=== PATIENT | male | born 1975 | race Two or more races ===

== ENCOUNTER 2024-11-17 14:57 | Outpatient (REF) | payer MEDICAID, SELFPAY ==
--- OUTSIDE RECORDS SUMMARY | 2024-11-17 16:56 | XMS_ITS | Encounter Summary ---
Author Organization [employer] Address 75 [facility] 7t [place] [address] Care Team Providers Care Layer Out Plate Glass Name Role Phone Royce Juárez MD Primary Care Provider [phone] Reason for Visit * Reason Comments Med Refill Encounter Details Date Type Department Care Team ([facility] st Contact Info) Description 12/02/2023 Refill [facility] MED & PEDS [address] [place], [place] [id number] Royce Juárez MD [address] [place] [address] Gastroesophageal reflux disease without esophagitis Social History Tobacco Use Types Packs/Day Years Used Date Smoking Tobacco: Every Day Cigarettes 1 20 Smokeless Tobacco: Never Housing Stability Answer Date Recorded What is your housing situation today? I have foreignluisana smart 05/18/[address] you li ve. Do you have problems with any of the following? None of the above 05/18/2023 Food Insecurity Answer Date Recorded Within the past 12 months, y ou worried that your food would run out before you got money to buy more: Never True 05/18/2023 Within the past 12 months,th e food you bought just didn't last and you didn't have enough money to get more: Never True Transportation Answer Date Recorded In the past 12 months, has l ack of transportation kept you from medical appts, meetings, work or from getting things needed for daily living? No 05/18/2023 Utilities Answer Date Recorded In the past 12 months, has t he electric, gas, oil or water company threatened to shut off services in your home? No 05/18/2023 Sex and Gender Information Value Date Recorded Sex Assigned at Male 05/19/2022 10:15 AM EDT Legal Sex Male 10:15 AM EDT Gender Identity Male 05/19/2022 10:15 AM EDT Sexual Orientation Straight 05/19/2022 10 :15 AM EDT documented as of this encounter Plan of Treatment Not on file documented as of this encounter Visit Diagnoses Diagnosis Gastroesophageal reflux disease without esophagitis Esophageal reflux documented in this encounter Care Teams Layer Out Plate Glass Relationship Specialty Start Date End Date Royce Juárez MD [address] [place] [address] PCP - General Internal Medicine 09/28/19 documented as of this encounter
--- OUTSIDE RECORDS SUMMARY | 2024-11-17 16:56 | XMS_ITS | Clinical Summary ---
Author Organization [facility] Address [address] [place] [address] Care Team Providers Care Furnace Tapper Name Role Phone Josué Patel MD Primary Care Provider [phone] Source Comments PLEASE NOTE, if this patient is a minor, it may be UNLAWFUL to discuss sensitive information that is contained in these records (such as FAMILY PLANNING, MENTAL HEALTH or SUBSTANCE ABUSE) with the minor patient's parent or other person without the patient's specific authorization.[facility] Allergies No known active allergies Medications benztropine (COGENTIN) 1 mg tablet 3 5 Active FLUoxetine (PROZAC) 20 mg capsule 3 5 Active haloperidol (HALDOL) 10 mg tablet 3 5 Active vitamin e 400 unit capsule 3 5 Active ziprasidone (GEODON) 80 mg capsule 3 5 Active haloperidol (HALDOL) 10 mg tabletIndication s:Schizophrenia, unspecified type ([facility]) 1/2 tab prn use- per psych 1 Tab 0 6 Active simvastatin (ZOCOR) 10 mg tablet TAKE 1 TABLET BY MOUTH EVERY NIGHT AT BEDTIME 30 Tab 7 Active methylPREDNIsolo ne (MEDROL DOSPACK) 4 mg tablet packIndications: Body rash Follow package directions. 1 Packet 8 Active diphenhydrAMINE (BENADRYL) 25 mg capsuleIndicatio ns:Body rash Take 1 Cap by mouth every 6 (six) hours as needed for itching 30 Cap 1 8 Active triamcinolone acetonide (KENALOG) 0.1 % ointmentIndicati ons:Body rash Apply topically 2 (two) times daily 30 g 2 8 Active omeprazole (PRILOSEC) [address] capsuleIndicatio ns:Gastroesophag eal reflux disease, esophagitis presence not specified Take 1 Cap by mouth every morning before breakfast 30 Cap 8 Active Active Problems Problem Noted Date Diagnosed Date Gastroesophageal reflux disease 03/04/2017 Tobacco abuse 10/17/2014 Hypercholesterolemia 03/07/2014 Schizophrenia ([facility]) 03/07/2014 Overview (03/07/2014): Sees mental health for the medication. On shira vitale geodon H/O colonoscopy with polypectomy 03/07/2014 Overview (03/07/2014): Done January 09 2011Milton Brown MD Immunizations Immunization Administration Dates Next Due Flu, Preservative Free 06/04/2017 TDAP 06/04/2017 Family History Medical History Relation Name Comments Diabetes Father Hypertension Mother Diabetes Sister Relation Name Status Comments Father Alive Mother Alive Sister Alive Social History Tobacco Use Types Packs/Day Years Used Date Smoking Tobacco: Every Day Smokeless Tobacco: Never Chew Tobacco Cessation:Ready to Q uit: No; Counseling Given: Yes Alcohol Use Standard Drinks/Week Comments No 0 (1 standard drink = 0.6 oz pur e alcohol) Social Connections Answer Date Recorded Social Connections and Isolation 0 03/12/2019 Financial Resource Strain Answer Date R ecorded Financial Resource Strain 0 2018 Stress Answer Date Recorded Stress 0 03/12/2019 Physical Activity Answer Date Recorded Physical Activity 0 03/12/2019 Food Insecurity Answer Date Recorded Food 0 03/12/2019 Transportation Needs Answer Date Record ed Transportation 0 03/12/2019 Housing Stability Answer Date Recorded Housing 0 03/12/2019 Safety and Environment Answer Date Jose rded Safety 0 03/12/2019 Utilities Answer Date Recorded Utilities 0 03/12/2019 Employment Answer Date Recorded Employment 0 03/12/2019 Sex and Gender Information Value Date Recorded Sex Assigned at Male 06/04/2017 1:08 PM PST Legal Sex Male 11:36 AM PDT Gender Identity Male 06/04/2017 1:08 PM PST Sexual Orientation Straight 06/04/2017 1: 08 PM PST Last Filed Vital Signs Vital Sign Reading Time Taken Comments Blood Pressure 120/90 10/02/2017 1:46 PM EDT Pulse 64 10/02/2017 1:46 PM EDT Temperature 37.1 ??C (98.8 ??F) 10/02/2017 1:46 PM ED T Respiratory Rate 14 10/02/2017 1:46 PM EDT Oxygen Saturation 99% 09/27/2015 11:49 AM EST Inhaled Oxygen Concentration - - Weight 84.4 kg (186 lb) 10/02/2017 1:46 PM EDT Height 175.3 cm (5' 9 ) 10/02/2017 1:46 PM EDT Body Mass Index 27.47 10/02/2017 1:46 PM EDT Plan of Treatment Not on file Insurance [place] Member Subscriber Plan / Payer ( fective 2019-Present) Name:Medina Coleman Relation to Subscriber:Self Name:Medina Coleman Payer ID:[id number] Group ID:Not on file Type:Medicaid Address: [place] [id number] [facility] Care Teams Furnace Tapper Relationship Specialty Start Date End Date Josué Patel MD [address] [place] [id number] PCP - General Internal Medicine 02/09/18
--- OUTSIDE RECORDS SUMMARY | 2024-11-17 16:56 | XMS_ITS | Encounter Summary ---
Author Organization [employer] Address 75 [facility] 7t [place] [address] Care Team Providers Care Bight Maker Name Role Phone Royce Juárez MD Primary Care Provider [phone] Reason for Visit * Reason Onset Date Comments Medication Question 11/17/2024 Encounter Details Date Type Department Care Team ([facility] st Contact Info) Description 11/17/2024 Telephone [facility] MEDICINE [address] [place] [address] Royce Juárez MD [address] [place] [address] Medication Question Social History Tobacco Use Types Packs/Day Years Used Date Smoking Tobacco: Every Day Cigarettes 1 20 Smokeless Tobacco: Never Depression Answer Date Recorded Patient Health Questionnaire-9 Score 3 11/17/2024 Patient Health Questionnaire-9 Score 3 11/17/2024 Last PHQ-9: Questionnaire Data Not on file 0 11/17/2024 Housing Stability Answer Date Recorded What is your housing situation today? I have foreign smart 11/17/[address] you li ve. Do you have problems with any of the following? None of the above 11/17/2024 Food Insecurity Answer Date Recorded Within the past 12 months, y ou worried that your food would run out before you got money to buy more: Never True 2024 Within the past 12 months,th e food you bought just didn't last and you didn't have enough money to get more: Sometimes True 11/17/2024 Transportation Answer Date Recorded In the past 12 months, has l ack of transportation kept you from medical appts, meetings, work or from getting things needed for daily living? No 11/17/2024 Utilities Answer Date Recorded In the past 12 months, has t he electric, gas, oil or water company threatened to shut off services in your home? No 11/17/2024 Depression Answer Date Recorded Patient Health Questionnaire-2 Score 1 11/17/2024 Internet Access Answer Date Recorded Internet Access Q1 No 11/17/2024 Internet Access Q2 I cannot afford it 11/17/2024 Sex and Gender Information Value Date Recorded Sex Assigned at Male 05/19/2022 10:15 AM EDT Legal Sex Male 10:15 AM EDT Gender Identity Male 05/19/2022 10:15 AM EDT Sexual Orientation Straight 05/19/2022 10 :15 AM EDT documented as of this encounter Miscellaneous Notes * Telephone Encounter - Kimmie Moore - 11/17/2024 3:14 PM EDT Tc from [facility] with Mani'elida to clarify haloperidol (Haldol) 10 MG tablet directions. [phone] documented in this encounter Plan of Treatment Not on file documented as of this encounter Visit Diagnoses Not on filedocumented in this encounter Additional Health Concerns Assessment Noted Time PHQ-9 Depression Total Score: 3 11/18/19 25 3:06 PM EDT documented as of this encounter Care Teams Bight Maker Relationship Specialty Start Date End Date Royce Juárez MD [address] [place] [id number] PCP - General Internal Medicine 09/28/19 documented as of this encounter
--- OUTSIDE RECORDS SUMMARY | 2024-11-17 16:56 | XMS_ITS | Encounter Summary ---
Author Organization [employer] Address 75 [facility] 7t [place] [address] Care Team Providers Care Rail Express Clerk Name Role Phone Royce Juárez MD Primary Care Provider [phone] Reason for Visit * Reason Onset Date Comments Change PCP 05/26/2024 Encounter Details Date Type Department Care Team ([facility] st Contact Info) Description 05/26/2024 Telephone [facility] MEDICINE [address] [place] [address] Royce Juárez MD [address] [place] [address] Change PCP Social History Tobacco Use Types Packs/Day Years Used Date Smoking Tobacco: Every Day Cigarettes 1 20 Smokeless Tobacco: Never Housing Stability Answer Date Recorded What is your housing situation today? I have foreign smart 05/18/[address] you [...] encounter Miscellaneous Notes * Telephone Encounter - Charles Vasquez - 05/26/2024 11:20 AM EST Tc from [facility] stating pt is requesting to change to a korean speaking provider. Skylar stated due to pt's mental disorders it is a huge trigger for him needing an paginator during visits. Please contact Skylar at [phone]. documented in this encounter Plan of Treatment Not on file documented as of this encounter Visit Diagnoses Not on filedocumented in this encounter Care Teams Rail Express Clerk Relationship Specialty Start Date End Date Royce Juárez MD [address] [place] [address] PCP - General Internal Medicine 09/28/19 documented as of this encounter
--- OUTSIDE RECORDS SUMMARY | 2024-11-17 16:56 | XMS_ITS | Encounter Summary ---
Author Organization [employer] Address 75 [facility] 7 [place] [address] Care Team Providers Care Funeral Limousine Driver Name Role Phone Rocye Juárez MD Primary Care Provider [phone] Reason for Visit * Reason Comments Med Refill Encounter Details Date Type Department Care Team ([facility] st Contact Info) Description 08/06/2022 Refill [facility] CHC MED & PEDS [address] [place] [address] Royce Juárez MD [address] [place] [address] Gastroesophageal reflux disease without esophagitis Social History Tobacco Use Types Packs/Day Years Used Date Smoking Tobacco: Every Day Cigarettes 1 20 Smokeless Tobacco: Never Sex and Gender Information Value Date Recorded Sex Assigned at Male 05/19/2022 10:15 AM EDT Legal Sex Male 10:15 AM EDT Gender Identity Male 05/19/2022 10:15 AM EDT Sexual Orientation Straight 05/19/2022 10 :15 AM EDT COVID-19 Exposure Response Date Recorded In the last 10 days, have yo u been in contact with someone who was confirmed or suspected to have Coronavirus/COVID-19? No / Unsure 08/06/2022 10:19 AM EST documented as of this encounter Plan of Treatment Not on file documented as of this encounter Visit Diagnoses Diagnosis Gastroesophageal reflux disease without esophagitis Esophageal reflux documented in this encounter Care Teams Funeral Limousine Driver Relationship Specialty Start Date End Date Royce Juárez MD [address] [place] [address] PCP - General Internal Medicine 09/28/19 documented as of this encounter
--- OUTSIDE RECORDS SUMMARY | 2024-11-17 16:56 | XMS_ITS | Encounter Summary ---
Author Organization [employer] Address 75 [facility] 7t [place] [address] Care Team Providers Care Evaluation Specialist Name Role Phone Royce Juárez MD Primary Care Provider [phone] Encounter Details Date Type Department Care Team (Latest Contact Info) Description 11/17/2024 Travel Social History Tobacco Use Types Packs/Day Years [...] documented as of this encounter Care Teams Evaluation Specialist Relationship Specialty Start Date End Date Royce Juárez MD [address] [place] [address] PCP - General Internal Medicine 09/28/19 documented as of this encounter
--- OUTSIDE RECORDS SUMMARY | 2024-11-17 16:56 | XMS_ITS | Encounter Summary ---
Author Organization [employer] Address 75 [facility] 7t [place] [address] Care Team Providers Care Rough Patcher Name Role Phone Royce Juárez MD Primary Care Provider [phone] Reason for Visit * Reason Comments Med Refill Encounter Details Date Type Department Care Team ([facility] st Contact Info) Description 12/22/2023 Refill [facility] CHC MED & PEDS [address] [place], [place] [phone] Royce Juárez MD [address] [place] [address] Gastroesophageal reflux disease without esophagitis Social History [...] reflux documented in this encounter Care Teams Rough Patcher Relationship Specialty Start Date End Date Royce Juárez MD [address] [place] [address] PCP - General Internal Medicine 09/28/19 documented as of this encounter
--- OUTSIDE RECORDS SUMMARY | 2024-11-17 16:56 | XMS_ITS | Encounter Summary ---
Author Organization [employer] Address 75 [facility] 7t [place] [address] Care Team Providers Care Skating Rink Manager Name Role Phone Royce Juárez MD Primary Care Provider [phone] Reason for Visit * Reason Comments Med Refill Encounter Details Date Type Department Care Team ([facility] st Contact Info) Description 01/03/2024 Refill [facility] CHC MED & PEDS [address] [place], [place] [phone] Royce Juárez MD [address] [place] [address] Gastroesophageal reflux disease without esophagitis Social History [...] reflux documented in this encounter Care Teams Skating Rink Manager Relationship Specialty Start Date End Date Royce Juárez MD [address] [place] [address] PCP - General Internal Medicine 09/28/19 documented as of this encounter
--- OUTSIDE RECORDS SUMMARY | 2024-11-17 16:56 | XMS_ITS | Encounter Summary ---
Author Organization [employer] Address 75 [facility] 7t [place] [address] Care Team Providers Care Small Parts Assembler Name Role Phone Royce Juárez MD Primary Care Provider [phone] Reason for Visit * Reason Onset Date Comments Nurse Triage 02/20/2023 Encounter Details Date Type Department Care Team ([facility] st Contact Info) Description 02/20/2023 Telephone [facility] MED & PEDS [address] [place] [address] Royce Juárez MD [address] [place] [address] Nurse Triage Social History Tobacco Use Types Packs/Day Years [...] encounter Miscellaneous Notes * Telephone Encounter - Aissatou Vargas RN - 02/20/2023 2:28 PM EDT Triage call , Ella, out reach coordinator , was asked by Pt mother to make apt for Pt. Pt has had a sore throat and cough this week. Neg for fever. Offered to come to [facility] today in [facility] but, declined because Pt wouldn't be able to get ready that fast. Advised to call back on Thursday02/23/23 for [facility] and agreed to this plan. Home care advised at this time and ED/UC visit if sore throat worsens or fever. Protocol Used: Sore Throat (Adult) Protocol-Based Disposition: Home Care Positive Triage Question: * Sore throat * All higher-acuity triage questions were negative Care Advice Discussed: * For Relief of Sore Throat Pain * Pain and Fever Medicines * Soft Diet * Drink Plenty of Liquids * Contagiousness * Expected Course * Reasons To Call Back - Sore throat is the main symptom and it lasts longer than 48 hours - Sore throat is mild but lasts longer than 4 days - Fever lasts longer than 3 days - You become worse * Telephone Encounter - Kirsty Jacinto - 02/20/2023 2:12 PM EDT Symptoms: Sore Throat, Cough Outcome: Schedule an appointment to be seen within 24 hours Reason: Caller denied all higher acuity questions The caller accepted this outcome Please contact ella at [phone] documented in this encounter Plan of Treatment Not on file documented as of this encounter Visit Diagnoses Not on filedocumented in this encounter Care Teams Small Parts Assembler Relationship Specialty Start Date End Date Royce Juárez MD [address] [place] [address] PCP - General Internal Medicine 09/28/19 documented as of this encounter
--- OUTSIDE RECORDS SUMMARY | 2024-11-17 16:56 | XMS_ITS | Clinical Summary ---
Author Organization [employer] Address [address] [facility] [address] [place] [address] Care Team Providers Care [employer] Cake Decorator Name Role Phone Royce Juárez MD Primary Care Provider [phone] Allergies No known active allergies Medications diphenhydrAMINE (BENADryl) 25 MG capsule Take 25 mg by mouth every 6 (six) hours if needed. 09/01/19 18 Active FLUoxetine (PROzac) 20 MG capsule Take 40 mg by mouth in the morning. 07/03/20 22 Active ziprasidone (Geodon) 80 MG capsule Take 1 capsule by mouth every 12 (twelve) hours. 09/12/19 15 Active omeprazole (PriLOSEC) [address] capsuleIndication s:Gastroesophagea l reflux disease without esophagitis TAKE 1 CAPSULE(20 MG) BY MOUTH IN THE MORNING 90 capsule 07/27/19 25 Active haloperidol (Haldol) 10 MG tabletIndications :Other schizophrenia (CMS/HCC) Prescribed by psyc 60 tablet 11/18/19 25 Active carbamide peroxide (Debrox) 6.5 % otic solutionIndicatio ns:Excessive cerumen in left ear canal Administer 5-10 drops into affected ear(s) 2 times daily for 4 days. 30 mL 11/18/19 25 025 Active benztropine (Cogentin) 1 MG tablet Take 1 tablet by mouth every 12 (twelve) hours. 09/24/19 15 025 Discontin ued(Thera py completed ) Active Problems Problem Noted Date Diagnosed Date Smoking addiction 11/17/2024 Hypertensive disorder 08/06/2022 Gastroesophageal reflux disease 03/04/2017 Hypercholesterolemia 03/07/2014 Schizophrenia 03/07/2014 Overview (08/06/2022): Sees mental health for the medication. On shira hawthorne geodon Encounters Date Type Department Care Team Description 11/17/2024 2:00 PM EDT Office Visit [facility] [address] [place] [address] Royce Juárez MD Other schizophrenia (CMS/HCC) (Primary Dx); Annual physical exam; Smoking addiction; Excessive cerumen in left ear canal; Screening for colon cancer 11/17/2024 Telephone [facility] [address] [place] [phone] Royce Juárez MD Medication Question 11/17/2024 Travel 11/10/2024 Patient Outreach [facility] [address] [place] [address] Royce Juárez MD Pre-visit Planning (Pre visit planning unable to LVM ) 09/30/2024 Population Health Risk Score Community [facility] () Department [address] [place] [phone] Provider, Population Health Generic 09/06/2024 Telephone [facility] [address] [place] [address] Royce Juárez MD No Show from Last 3 Months Immunizations Name Administration Dates Next Due Influenza injectable quadrivalent preservative f ree 06/04/2017 Tdap 06/04/2017 Social History Tobacco Use Types Packs/Day Years Used Date Smoking Tobacco: Every Day Cigarettes 1 20 Smokeless Tobacco: Never Tobacco Cessation:Ready to Q uit: Not Asked; Counseling Given: Not Answered Depression Answer Date Recorded Patient Health Questionnaire-9 [...] the past 12 months, has t he [employer] [facility] [employer], gas, oil or water company threatened to [...] Orientation Straight 05/19/2022 10 :15 AM EDT Last Filed Vital Signs Vital Sign Reading Time Taken Comments Blood Pressure 112/82 11/17/2024 1:55 PM EDT Pulse 71 11/17/2024 1:55 PM EDT Temperature 36.6 ??C (97.9 ??F) 11/17/2024 1:55 PM ED T Respiratory Rate 20 11/17/2024 1:55 PM EDT Oxygen Saturation 97% 11/17/2024 1:55 PM EDT Inhaled Oxygen Concentration - - Weight 83.9 kg (185 lb) 11/17/2024 1:55 PM EDT Height 177.8 cm (5' 10 ) 11/17/2024 1:55 PM EDT Body Mass Index 26.54 11/17/2024 1:55 PM EDT Plan of Treatment Health Maintenance Due Date Last Done Comments CT Colonography 1976 Colonoscopy 1976 Colorectal Cancer Screening 1976 FIT DNA/Cologuard 1976 FIT 1976 FOBT 1976 HIV Screening 1976 Sigmoidoscopy 1976 Family Planning (PISQ) 1991 COVID-19 Vaccine (3 - 2023-2 5 season) 2024 11/22/2020, 10/25/2020 Influenza Vaccine (#1) 2024 06/04/2017 Alcohol/Substance Use Screening 11/17/2025 11/17/2024 Depression Screening 11/17/2025 11/17/2024, 11/17/2024 Hepatitis B Vaccines (1 of 3 - 19+ 3-dose series) 11/17/2025 Postponed from 10/1994 (Patient Refused) Pneumococcal Vaccine: Pediatrics (0 to 5 Years) and At-Risk Patients (6 to 49) Years) (1 of 2 - PCV) 11/17/2025 Postponed from 10/1994 (Patient Refused) SDOH Screening 11/17/2025 11/17/2024 Tobacco Screening 11/17/2025 11/17/2024 Zoster Vaccines (1 of 2) 2026 DTaP/Tdap/Td Vaccines (2 - T d or Tdap) 06/04/2027 06/04/2017 Lipid Panel 08/11/2027 08/11/2022, 05/02/2020 RSV Patients and Patients Aged 60 years or older (1 - 1-dose 75+ series) 2051 Hepatitis C Screening Completed 08/11/2022 HIB Vaccines Aged Out No longer eligi ble based on patient's age to complete this topic HPV Vaccines Aged Out No longer eligi ble based on patient's age to complete this topic Hepatitis A Vaccines Aged Out No long er eligible based on patient's age to complete this topic IPV Vaccines Aged Out No longer eligi ble based on patient's age to complete this topic Meningococcal Vaccine Aged Out No mayte erendira eligible based on patient's age to complete this topic RSV under 20 months Aged Out No longe r eligible based on patient's age to complete this topic Rotavirus Vaccines Aged Out No longer eligible based on patient's age to complete this topic Procedures Procedure Name Priority Date/Time Associated Diagnosis Comments HEPATITIS C AB W/REFL TO HCV RNA, QN, PCR Routine 08/11/2022 9:24 AM EST Annual physical exam LIPID PANEL, STANDARD Routine 08/11/2022 9:24 AM EST Hypercholesterolemi a from Last 3 Months or Most Recently Relevant to Health Maintenance Results * Hepatitis C Antibody with Reflex to HCV, RNA, Quantitative, Real-Time PCR (08/11/2022 9:24 AM EST) Pathologist [facility] Hepatitis C Antibody NON-REACT JIMBO NON-REACT JIMBO [facility] [place] [facility] Index 0.06 <1.00 [facility] [place] [facility] Comment: HCV antibody was non-reactive. There is no laboratory evidence of HCV infection. In most cases, no further action is required. However, if recent HCV exposure is suspected, a test for HCV RNA (test code 03918) is suggested. For additional information please refer to http://education.[employer]/faq/NWG97z5 (This link is being provided for informational/ educational purposes only.) Blood Venous blood specimen / Unknown 08/11/2022 9:24 AM EST 08/11/2022 9:25 AM EST Narrative [facility] - 08/11/2022 8:26 PM EST FASTING:YES FASTING: YES us Royce Juárez MD LAB BLOOD ORDERABLES Final Result [facility] [address] [facility], [facility], [place] [address] [facility] [place] [facility] [address] [facility], ([address]) [place] [address] * (ABNORMAL) Lipid Panel, Standard (08/11/2022 9:24 AM EST) Pathologist [facility] Cholesterol, Total 216(H) <200 mg/dL [facility] [place] [facility] HDL Cholesterol 31(L) > OR = 40 mg/dL [facility] [place] [facility] Triglycerides 118 <150 mg/dL [facility] [place] [facility] LDL Cholesterol 161(H) mg/dL (calc) [facility] [place] [facility] Comment: Reference range: <100 Desirable range <100 mg/dL for primary prevention; ?? <70 mg/dL for patients with CHD or diabetic patients with > or = 2 CHD risk factors. LDL-C is now calculated using the Jennie calculation, which is a validated novel method providing better accuracy than the Friedewald equation in the estimation of LDL-C. Mayank SS et al. BELINDA. 2013;310(19): 1414-9209 (http://education.[employer]/faq/BZC448) Chol/HDLC Ratio 7.0(H) <5.0 (calc) [facility] Non-HDL Cholesterol 185(H) <130 mg/dL (calc) [facility] Comment: For patients with diabetes plus 1 major ASCVD risk factor, treating to a non-HDL-C goal of <100 mg/dL (LDL-C of <70 mg/dL) is considered a therapeutic option. Blood Venous blood specimen / Unknown 08/11/2022 9:24 AM EST 08/11/2022 9:25 AM EST Narrative [facility] - 08/11/2022 8:26 PM EST FASTING:YES FASTING: YES us Royce Juárez MD LAB BLOOD ORDERABLES Final Result [facility] [address], [place] [address] [facility] [place] [facility] [address] [facility], [address]) [place] [address] from Last 3 Months or Most Recently Relevant to Health Maintenance Insurance [facility] C3 Care Teams [employer] Cake Decorator Relationship Specialty Start Date End Date Royce Juárez MD [address] [place] [id number] PCP - General Internal Medicine 09/28/19
--- OUTSIDE RECORDS SUMMARY | 2024-11-17 16:56 | XMS_ITS | Encounter Summary ---
Author Organization [employer] Address [address] [facility] [address] [place] [address] Care Team Providers Care [employer]iz[employer] Architect Name Role Phone Royce Juárez MD Primary Care Provider [phone] Reason for Visit * Reason Comments Annual Exam Encounter Details Date Type Department Care Team (Latest Contact Info) Description 11/17/2024 2:00 PM EDT Office Visit [facility] [address] [place], [place] [phone] Royce Juárez MD [address] [place] [address] Other schizophrenia (CMS/HCC) (Primary Dx); Annual physical exam; Smoking addiction; Excessive cerumen in left ear canal; Screening for colon cancer Social History Tobacco Use Types Packs/Day Years [...] AM EDT documented as of this encounter Last Filed Vital Signs Vital Sign Reading [...] Mass Index 26.54 11/17/2024 1:55 PM EDT documented in this encounter Progress Notes * Royce Juárez MD - 11/17/2024 2:00 PM EDT SUBJECTIVE Marcellus Coleman is a 49 y.o. male who presents for Annual Exam. HPI Patient is overall doing well. Has no complaints today. History of schizoaffective disorder. Has his psychiatrist. He came with a list of requested blood work from his psychiatrist. Patient Active Problem List Diagnosis Gastroesophageal reflux disease Hypercholesterolemia Hypertensive disorder Schizophrenia (CMS/HCC) Smoking addiction No Known Allergies Current Outpatient Medications on File Prior to Visit Medication Sig Dispense Refill diphenhydrAMINE (BENADryl) 25 MG capsule Take 25 mg by mouth every 6 (six) hours if needed. FLUoxetine (PROzac) 20 MG capsule Take 40 mg by mouth in the morning. omeprazole (PriLOSEC) [address] capsule TAKE 1 CAPSULE(20 MG) BY MOUTH IN THE MORNING 90 capsule 0 ziprasidone (Geodon) 80 MG capsule Take 1 capsule by mouth every 12 (twelve) hours. [DISCONTINUED] benztropine (Cogentin) 1 MG tablet Take 1 tablet by mouth every 12 (twelve) hours. No current facility-administered medications on file prior to visit. Review of Systems Constitutional: Negative for activity change, appetite change, chills and diaphoresis. HENT: Negative for dental problem, drooling and ear discharge. Eyes: Negative for pain and itching. Respiratory: Negative for cough, choking and chest tightness. Cardiovascular: Negative for palpitations and leg swelling. Gastrointestinal: Negative for abdominal pain, anal bleeding and blood in stool. Endocrine: Negative for cold intolerance and heat intolerance. Genitourinary: Negative for flank pain, frequency and genital sores. Musculoskeletal: Negative for back pain. Neurological: Negative for light-headedness, numbness and headaches. Psychiatric/Behavioral: Negative for agitation, confusion and decreased concentration. OBJECTIVE Vitals: 11/17/24 1355 BP: 112/82 BP Location: Left arm Patient Position: Sitting BP Cuff Size: Adult Pulse: 71 Resp: 20 Temp: 97.9 ??F (36.6 ??C) TempSrc: Oral SpO2: 97% Weight: 185 lb (83.9 kg) Height: 5' 10 (1.778 m) Physical Exam Constitutional: General: He is not in acute distress. Appearance: Normal appearance. He is obese. He is not ill-appearing, toxic- appearing or diaphoretic. HENT: Head: Normocephalic. Right Ear: Tympanic membrane normal. Left Ear: Tympanic membrane normal. Nose: Nose normal. Eyes: General: No scleral icterus. Right eye: No discharge. Left eye: No discharge. Pupils: Pupils are equal, round, and reactive to light. Cardiovascular: Rate and Rhythm: Normal rate and regular rhythm. Heart sounds: No murmur heard. No friction rub. No gallop. Pulmonary: Effort: Pulmonary effort is normal. No respiratory distress. Breath sounds: Normal breath sounds. No stridor. No wheezing, rhonchi or rales. Chest: Chest wall: No tenderness. Abdominal: General: Abdomen is flat. There is no distension. Palpations: Abdomen is soft. There is no mass. Tenderness: There is no abdominal tenderness. There is no right CVA tenderness, guarding or rebound. Hernia: No hernia is present. Musculoskeletal: General: Normal range of motion. Cervical back: Normal range of motion. Skin: General: Skin is warm. Neurological: General: No focal deficit present. Mental Status: He is alert. Psychiatric: Mood and Affect: Mood normal. Behavior: Behavior normal. Assessment/Plan Assessment/Plan Diagnoses and all orders for this visit: Other schizophrenia (CMS/[facility]) Comments: Follows up with psychiatrist All blood work requested ordered. Orders: - haloperidol (Haldol) 10 MG tablet; Prescribed by psyc Annual physical exam Comments: Normal cardiopulmonary exam Patient is to maintain a healthy and balanced diet Goal exercises: 150 minutes a week. Orders: - CBC auto differential; Future - Comprehensive Metabolic Panel; Future - Lipid Panel, Standard; Future - TSH W/Reflex to FT4; Future - Hemoglobin A1c; Future - Urinalysis, Complete, with Reflex to Culture; Future - HIV-1/2 Antigen and Antibodies, Fourth Generation, with Reflexes; Future - Hepatitis C Antibody with Reflex to HCV, RNA, Quantitative, Real-Time PCR; Future Smoking addiction Comments: Patient wants to quit on his own Excessive cerumen in left ear canal - carbamide peroxide (Debrox) 6.5 % otic solution; Administer 5-10 drops into affected ear(s) 2 times daily for 4 days. Screening for colon cancer - Cologuard?? colon cancer screening; Future documented in this encounter Plan of Treatment Scheduled Orders Name Type Priority Associated Diagnoses Orde r Schedule CBC auto differential Lab Routine Annual physical exam Expected: 11/17/2024 (Approximate), Expires: 11/17/2025 Comprehensive Metabolic Panel Lab Routine Annual physical exam Expected: 11/17/2024 (Approximate), Expires: 11/17/2025 Lipid Panel, Standard Lab Routine Annual physical exam Expected: 11/17/2024 (Approximate), Expires: 11/17/2025 TSH W/Reflex to FT4 Lab Routine Annual physical exam Expected: 11/17/2024 (Approximate), Expires: 11/17/2025 Hemoglobin A1c Lab Routine Annual physical exam Expected: 11/17/2024 (Approximate), Expires: 11/17/2025 Urinalysis, Complete, with Reflex to Culture Lab Routine Annual physical exam Expected: 11/17/2024 (Approximate), Expires: 11/17/2025 HIV-1/2 Antigen and Antibodies, Fourth Generation, with Reflexes Lab Routine Annual physical exam Expected: 11/17/2024 (Approximate), Expires: 11/17/2025 Hepatitis C Antibody with Reflex to HCV, RNA, Quantitative, Real-Time PCR Lab Routine Annual physical exam Expected: 11/17/2024, Expires: 11/17/2025 Cologuard?? colon cancer screening Lab Routine Screening for colon cancer Expected: 11/17/2024 (Approximate), Expires: 11/17/2025 documented as of this encounter Visit Diagnoses Diagnosis Other schizophrenia (CMS/HCC)- Primary Annual physical exam Routine general medical examination at a health care facility Smoking addiction Excessive cerumen in left ear canal Screening for colon cancer Special screening for malignant neoplasms, colon documented in this encounter Additional Health Concerns Assessment Noted Time PHQ-9 Depression Total Score: 3 11/18/19 25 3:06 PM EDT documented as of this encounter Care Teams Biztalk Architect Relationship Specialty Start Date End Date Royce Juárez MD [address] [place] [id number] PCP - General Internal Medicine 09/28/19 documented as of this encounter
[2024-11-17 17:41] LABS: Appearance Urine Clear; Color Urine Dark Yellow; Glucose Urine UA Negative (Negative); Leukocyte Esterase Urine Negative (Negative); Nitrite Urine Negative (Negative); PH 5.5 (5.0-9.0); UMIC TRIGGER UACC YES; Urine Blood Moderate (2+) (Negative); Urine Ketones Negative (Negative); Urine Protein 100 (2+) mg/dL (Neg-Trace)
[2024-11-17 17:47] LABS: MANUAL DIFF FLAG NO
[2024-11-17 17:58] LABS: Basophils Absolute Auto 0.1 X10*3/uL (0.0-0.2); Basophils Percent Auto 0.4 % (0-2); Eosinophils Absolute Auto 0.3 X10*3/uL (0.0-0.4); Eosinophils Percent Auto 2.2 % (0-4); Hematocrit 33.9 % (42.0-52.0); Hemoglobin 11.2 g/dl (14.0-18.0); Imm Gran Abs Auto 0.07 X10*3/uL (0.00-0.03); Imm Gran Pct Auto 0.5 % (0.0-0.4); Lymphocytes Absolute Auto 2.2 X10*3/uL (1.2-4.9); Lymphocytes Percent Auto 15.9 % (20-40); Mean Corpuscular Volume 90.9 fL (80.0-98.0); Mean Platelet Volume 10.1 fL (9.4-12.4); Monocytes Absolute Auto 0.7 X10*3/uL (0.1-1.2); Monocytes Percent Auto 4.8 % (2-11); Neutrophils Absolute Auto 10.4 x10*3/uL (2.0-8.3); Neutrophils Percent Auto 76.2 % (45-73); Platelet Count 310 X10*3/uL (160-400); Red Blood Count 3.73 X10*6/uL (4.60-5.80); Red Cell Distribution Width 12.6 % (11.0-16.0); White Blood Count 13.7 X10*3/uL (4.8-10.8)
[2024-11-17 17:59] LABS: Estimated Average Glucose 105 mg/dL; Hemoglobin A1C 100.2359 umol/L; Hemoglobin A1c % 5.3 % (<6.0); Total Hemoglobin (HGBA1C) 2943.6026 umol/L
[2024-11-17 18:00] LABS: Bacteria Urine None Seen (None Seen); Squamous Epithelial Cell Urine 0-2 /HPF (0-2); WBC Urine 0-5 /HPF (0-5)
[2024-11-17 18:17] LABS: Alanine Aminotransferase 10 U/L (0-40); Albumin Level 3.6 g/dL (3.5-5.0); Alkaline Phosphatase 74 U/L (39-117); Anion Gap 10 (12-20); Aspartate Amino Transferase 21 U/L (5-37); Bilirubin Total 0.2 mg/dL (0.0-1.0); Blood Urea Nitrogen 22 mg/dL (9-16); Calcium 8.8 mg/dL (8.4-10.2); Carbon Dioxide 28 mmol/L (22-29); Chloride 103 mmol/L (96-108); Cholesterol 204 mg/dL (<200); Estimated Glomerular Filt Rate 38; Glucose Random 78 mg/dL (60-115); HDL Cholesterol 30 mg/dL (>40); LDL Cholesterol Calculated 151 mg/dL (<100); Potassium 4.8 mmol/L (3.3-5.1); Sodium 136 mmol/L (135-145); Total Protein 6.6 g/dL (6.5-8.0); Triglycerides 115 mg/dL (<150)
[2024-11-17 18:24] LABS: TSH reflex Free T4 0.93 uIU/mL (0.32-4.0)
[2024-11-18 05:14] LABS: Prolactin 42.2 ng/mL (2.0-18.0)
[2024-11-18 08:18] LABS: HIV AB/AG Nonreactive (Nonreactive); HIV Num 1 0.07 S/CO (0.00-0.99); ~HepC Num1 0.08 S/CO (0.00-0.79); ~Hepatitis C Antibody Nonreactive (Nonreactive)
== END 2024-11-17 14:58 | disposition home or self-care (01) ==
LOC: HO.CHCLDS 14:57
PROVIDERS: PCP Internal Medicine; Referring Provider Counselor Mental Health; Visit Provider Internal Medicine
DX: Z00.00 Encounter for general adult medical examination without abnormal findings (principal); F20.9 Schizophrenia, unspecified; Z11.3 Encounter for screening for infections with a predominantly sexual mode of transmission; Z13.1 Encounter for screening for diabetes mellitus; Z11.59 Encounter for screening for other viral diseases; Z13.220 Encounter for screening for lipoid disorders; Z13.29 Encounter for screening for other suspected endocrine disorder
CPT/HCPCS: 36415; 80053; 80061; 81001; 83036; 84146; 84443; 85025; 86803; 87389